=== PATIENT | female | born 1990 | race Caucasian/White ===

== ENCOUNTER 2017-03-10 16:06 | Observation (INO) | payer OTHER ==
[~2017-03-10] VITALS: Ht 165.1 cm; Wt 115.0 kg
[~2017-03-10 16:06] MED LIST: MOTRIN 600600 MG/TAB PO; PERCOCET 325 MG1 TA2 PO; PRENATAL1 TA1 PO; SENOKOT S 50 MG1 TAB PO
[2017-03-10 17:31] LABS: PH 5 (5-8); URINE APPEARANCE Cloudy; URINE BACTERIA None Seen /hpf; URINE BILIRUBIN Positive (NEGATIVE); URINE BLOOD 2+ (NEGATIVE); URINE COLOR Amber; URINE GLUCOSE Negative (NEGATIVE); URINE KETONE 2+ (NEGATIVE)
[2017-03-10] MEDS ORDERED: CARAFATE 1GM1 G PO (17:34)
[2017-03-10] MEDS ORDERED: PRILOSEC 20MG20 MG PO (17:34)
[2017-03-10] MEDS ORDERED: FLINTSTONES COM1 CT1 PO (17:35)
[2017-03-10 21:54] VITALS: BP 107/58; PULSE 57; TEMP 97.9
[2017-03-11 04:03] VITALS: BP 134/68; PULSE 64; TEMP 98.2
[2017-03-11 06:27] VITALS: BP 117/53; PULSE 57; TEMP 97.6
[2017-03-11 08:04] LABS: BASO % 0.3 % (0.0-2.0); EOS # 0.3 (0.0-0.7); EOS % 7.6 % (0-4.0); GRAN # 1.9 (1.4-6.5); GRAN % 50.7 % (42.2-75.2); HEMATOCRIT 40.3 % (37.0-47.0); HEMOGLOBIN 13.4 g/dl (12.5-16.0); LYMPH # 1.1 (1.2-3.4); LYMPH % 29.5 % (20.0-51.0); MEAN CELL VOLUME 91 fl (80.0-100.0); MEAN CORPUSCULAR HEMOGLOBIN 30 pg (27.0-31.0); MEAN CORPUSCULAR HGB CONC 33 g/dl (33.0-37.0); MEAN PLATELET VOLUME 11.6 fl (7.4-10.4); MONO # 0.4 (0.1-0.6); MONO % 11.9 % (1.7-9.3); PLATELET COUNT 178 K/mm3 (130-400); RED BLOOD COUNT 4.45 M/mm3 (4.10-5.30); WHITE BLOOD COUNT 3.7 K/mm3 (4.8-10.8)
[2017-03-11 08:10] VITALS: BP 96/40; PULSE 61; TEMP 97.9
[2017-03-11 08:13] LABS: ADJUSTED CALCIUM 8.9 mg/dL (8.4-10.2); ALBUMIN 3.4 gm/dL (3.5-5.0); CALCIUM 8.4 mg/dL (8.4-10.2); CREATININE, serum 0.59 mg/dL (0.52-1.25); POTASSIUM 3.3 mmol/L (3.4-5.0); TOTAL PROTEIN 6.1 gm/dL (6.4-8.2)
[2017-03-11] MEDS ORDERED: FLEXERIL5 MG PO (09:53)
[2017-03-11 10:15] VITALS: BP 118/61
== END 2017-03-11 12:20 | disposition home or self-care (01) ==
LOC: COL.ER 16:06 → SURG 20:04
PROVIDERS: Emergency Medicine
DX: R10.9 Unspecified abdominal pain (principal); E86.0 Dehydration; K85.90 Acute pancreatitis without necrosis or infection, unspecified
CPT/HCPCS: 99239; G0378; J2270; J2405; J3480; J7030; Q9967